=== PATIENT | female | born 1955 | race Caucasian/White ===

== ENCOUNTER → 2024-03-03 13:05 | Outpatient (CLI) | payer MEDICARE, SELFPAY ==
--- NOTE | 2024-03-03 13:06 | DI.MG.S_ITS ---
BILATERAL DIGITAL SCREENING MAMMOGRAM 3D/2D WITH CAD: 03/03/2024 CLINICAL: Routine screening. Comparison is made to exams dated: 04/20/2021 mammogram, 01/24/2020 mammogram, and 09/15/2010 mammogram - [facility]. There are scattered areas of fibroglandular density in both breasts (category b / 25%-50% glandular tissue). Current study was also evaluated with a Computer Aided Detection (CAD) system. No significant masses, calcifications, or other findings are seen in either breast. There has been no significant interval change. IMPRESSION: NEGATIVE There is no mammographic evidence of malignancy. A 1 year screening mammogram is recommended. Based on the Tyrer Cuzick model (a risk assessment model) the patient's lifetime risk is 4.8% and her 10 year risk is 2.4%. According to the ACR, ACS, and NCCN guidelines, an annual breast MRI exam along with mammogram is recommended if the patient's lifetime risk is 20% or greater. This exam was interpreted at Station ID: [id number]. NOTE: For mammograms, a report in lay terms will be sent to the patient. Approximately 15% of breast malignancies will not be visualized mammographically. In the management of a palpable breast mass, a negative mammogram must not discourage biopsy of a clinically suspicious lesion. Electronically Signed By: Nayla kolb/nicolas:03/03/2024 16:06:18 copy to: DILSHAD FLORES letter sent: Normal Exam ACR BI-RADS Category 1: Negative 3341F
[2024-03-03 14:14] LABS: Hemoglobin A1C% w Est Avg Glu 9.8 % (4.0-6.0)
[2024-03-03 14:23] LABS: HEMOLYSIS < 15 (0-50); Iron 93 ug/dL (37-170)
[2024-03-03 14:27] LABS: Add Manual Diff / Slide Review NO; Basophils Absolute Auto 0 /uL (0-100); Basophils Percent Auto 0.6 % (0-2); Eosinophils Absolute Auto 400 /uL (0-450); Eosinophils Percent Auto 5.1 % (2-4); Hematocrit 39.4 % (36-46); Hemoglobin 13.3 g/dL (12.0-16.0); Lymphocytes Absolute Auto 2800 /uL (1100-4500); Mean Corpuscular HGB Conc 33.7 % (30-36); Mean Corpuscular Hemoglobin 28.9 PG (26-34); Mean Corpuscular Volume 85.8 fL (80-100); Monocytes Absolute Auto 400 /uL (0-900); Monocytes Percent Auto 4.9 % (3-14); Neutrophils Absolute Auto 4100 /uL (1500-7000); Neutrophils Percent Auto 53.4 % (50-75); Platelet Count 292 X10^3/uL (150-400); Red Blood Cell Count 4.59 X10^6/uL (4.0-5.2); Red Cell Distribution Width 13.8 % (11.6-14.8); White Blood Cell Count 7.7 X10^3/uL (4.5-11.0)
[2024-03-03 14:29] LABS: Cholesterol 162 mg/dL (140-199); HDL Cholesterol 59 mg/dL (40-60); LDL Cholesterol Calculated 87 mg/dL (<100); Triglycerides 79 mg/dL (35-150)
[2024-03-03 14:34] LABS: Percent Iron Saturation 35 % (15-50); Total Iron Binding Capacity 265 ug/dL (265-497); Transferrin 219 mg/dL (206-381)
[2024-03-04 12:37] LABS: Ferritin 86 ng/mL (11-264)
== END ==
PROVIDERS: PCP Family Medicine; Referring Provider Family Medicine; Visit Provider Family Medicine
DX: Z12.31 Encounter for screening mammogram for malignant neoplasm of breast (principal); D64.9 Anemia, unspecified; R73.9 Hyperglycemia, unspecified; E78.5 Hyperlipidemia, unspecified; R92.323 Mammographic fibroglandular density, bilateral breasts; Z13.220 Encounter for screening for lipoid disorders; E87.8 Other disorders of electrolyte and fluid balance, not elsewhere classified
CPT/HCPCS: 36415; 77063; 77067; 80061; 82728; 83036; 83540; 83550; 85025

== ENCOUNTER → 2024-03-08 14:51 | Outpatient (CLI) | payer MEDICARE, SELFPAY ==
--- NOTE | 2024-03-08 15:20 | DI.RAD.S_ITS ---
PROCEDURE: XR DEXA AXIAL SKELETON INDICATIONS: Screening for Bone Density COMPARISON: None. FINDINGS: Lumbar Spine: Bone mineral density 0.674 g/cm2, T score -3.4. Left Hip: Bone mineral density 0.810 g/cm2, T score -1.1. Left Femoral Neck: Bone mineral density 0.667 g/cm2, T score -1.6. Right Hip: Bone mineral density 0.830 g/cm2, T score -0.9. Right Femoral Neck: Bone mineral density 0.668 g/cm2, T score -1.6. Fracture Risk Calculation (when applicable): Not provided due to osteoporosis. (T score greater or equal to -1.0 to: NORMAL) (T score from -1.1 to -2.4: OSTEOPENIA) (T score less than or equal to -2.5: OSTEOPOROSIS) IMPRESSION: Lumbar spine osteoporosis. Dictated by: José Antonio Mckenzie M.D. on 03/08/2024 at 15:46 Approved by: José Antonio Mckenzie M.D. on 03/08/2024 at 15:47
== END ==
PROVIDERS: PCP Family Medicine; Referring Provider Family Medicine; Visit Provider Family Medicine
DX: R93.7 Abnormal findings on diagnostic imaging of other parts of musculoskeletal system (principal); N95.8 Other specified menopausal and perimenopausal disorders; M81.0 Age-related osteoporosis without current pathological fracture
CPT/HCPCS: 77080

== ENCOUNTER → 2024-04-16 12:56 | Outpatient (CLI) | payer MEDICARE, SELFPAY ==
--- NOTE | 2024-04-16 13:11 | DIAB.MNT ---
Initial Diabetes Medical Nutrition Therapy Assessment Name: Mildred Hope Date: 04/16/24 Time: 110-215p Dx: Type II Diabetes Presents for initial DM visit. New dx. Endorses Fh of Dm with both parents and siblings. Endorses wt loss since dx, at least 15#. Increased physical activity. has had diarrhea with each increase in Metformin, but it has improved each time. Newly dx with osteoporosis and wanting to know how to incorporate with Dm diet. Started Calcium supplements. Endorses some memory deficit. 20 years ago symptoms of dizzy, vision changes, was taken to provider and dx with vertigo. Feels she has some memory deficits since that event. Reports some fatigue. Wants to know how much carb to eat. Social: Reports difficulty with previous job and coworkers making fun of her for her age. No longer at this job. Reports h/o depression. Managing with PCP. Diet Recall: 3p: 2oz cheese 7-9p: veggie, and protein +/- sauce 1230-2p: salad with protein water, unsweet tea or diet coke Reports big reduction in CHO since diagnosis. She is unsure about how much fluids. Anthropometrics: Ht: 63 Wt: 174# reported Physical Activity: Walking with work for [employer]. No recent intentional walks, but plans to do this as weather improves. Bowflex resistance training, 3-4x per week. Self-Monitoring Blood Glucose: FBG checks started yesterday. First reading 143mg/dl. She is unsure of Bg goals. Needs clarity on BG vs HgA1c. Diabetes Medications: Metformin 1000mg ER BID Pertinent Labs: HgA1c: 9.8% 02/2024 Past Medical History: (Last Updated 04/05/24 @ 14:05 by Janeth Maldonado MD) Anhedonia Asthma DM2 (diabetes mellitus, type 2) Healthcare maintenance Osteoporosis Postnasal drip Seasonal allergies Nutrition Rx: Carbohydrates: Meal:30-45g Snack:15-30g Nutrition Diagnosis: - Food and nutrition related knowledge deficit r/t newly dx DM aeb pt report, diet recall and hgA1c >6.5% Intervention: This participant was very receptive. Provided appropriate educational handouts. Discussed the following topics: Completed intake assessment. Discussed barriers to care. Brief pathophysiology of T2DM HgA1c, its correlation to blood glucose numbers, and rationale for goal Importance of self-monitoring, how often, and when to check. Suggested checking at different times to evaluate meals Plate Method, impact of macronutrients on blood sugar, meal timing, carbohydrate counting, pairing macronutrients and spreading out carbohydrates for better blood glucose management Recommended servings for carbohydrates at meals and snacks Heart health nutrition Brainstormed appropriate meal plan based on food preferences Role of physical activity and following provider guidelines for safety Created SMART goals for patient self-care and success. Goals: Try adding 30g CHO to a meal and check BG Check BG 1-2x per day and write down Pair CHO and pro at meals/snacks Follow-up: [facility] PICKENS follow-up in 3-4 weeks. Offered May. She will consider and let me know next visit. Katiuska Bhardwaj RDN, [facility] Certified Diabetes Care and [place] [employer] Operator P: [phone] Thank you for this referral
== END ==
PROVIDERS: PCP Family Medicine; Referring Provider Family Medicine
DX: E11.9 Type 2 diabetes mellitus without complications (principal); M81.0 Age-related osteoporosis without current pathological fracture; Z79.84 Long term (current) use of oral hypoglycemic drugs; Z71.3 Dietary counseling and surveillance
CPT/HCPCS: 97802

== ENCOUNTER → 2024-05-18 15:56 | Outpatient (CLI) | payer MEDICARE, SELFPAY ==
--- NOTE | 2024-06-03 14:37 | DIAB.MNTFU ---
Follow-up Diabetes Medical Nutrition Therapy Assessment Name: Mildred Hope Date: 05/18/24 Time: 415-5p Dx: Type II Diabetes Mildred presents for follow-up visit. Reports recent illness with nausea, diarrhea, fatigue. Feels this may have been r/t new osteoporosis medication. States she feels she has made very little changes due to illness over the past month. Feeling better now. Avoiding most CHO per report. Has questions about vitamin d dosing. Reduced CHO portions when eating out by eating half. States there is no rf on her Metformin dose. Encouraged her to contact PCP. Has f/u in May per report. no recent eye appt Diet Recall: 3p: leftobers OR toast with PB OR yogurt +/- cheese 7-9p: tuna noodles with veg OR steak salad and potato OR pizza x 1-2 slices and salad 1230-2p: salad with protein water, unsweet tea or diet coke Anthropometrics: Ht: 63 Wt: 174# reported Physical Activity: None since illness. Last visit: Walking with work for [employer]. No recent intentional walks, but plans to do this as weather improves. Bowflex resistance training, 3-4x per week. Self-Monitoring Blood Glucose: FBG checks and few pc readings. Overall, most in goal. FBG recently: 123, 123, 121, 121, 145, 118, 111 mg/dl. One pc reading on 05/04 of 114mg/dl. Diabetes Medications: Metformin 1000mg ER BID Pertinent Labs: HgA1c: 9.8% 02/2024 Past Medical History: (Last Updated 04/05/24 @ 14:05 by Janeth Maldonado MD) Anhedonia Asthma DM2 (diabetes mellitus, type 2) Healthcare maintenance Osteoporosis Postnasal drip Seasonal allergies Nutrition Rx: Carbohydrates: Meal:30-45g Snack:15-30g Nutrition Diagnosis: - Food and nutrition related knowledge deficit r/t newly dx DM aeb pt report, diet recall and hgA1c >6.5%- improved -Physical inactivity r/t illness aeb pt report - new - Inconsistent energy intake r/t nutrition knowledge deficit aeb diet recall- new Intervention: This participant was very receptive. Provided appropriate educational handouts. Discussed the following topics: Completed intake assessment. Discussed barriers to care. Review of nutrition recs, portions, pairing, and meal timing Physical activity barriers and goals Complication risk reduction strategies: eye care, dental, feet RUBBER MIXER for vitamin D and upper limits Created SMART goals for patient self-care and success. Goals: Try adding 30g CHO to a meal and check BG- met Check BG 1-2x per day and write down- met Pair CHO and pro at meals/snacks- met Restart bowflex 3-4x per week - new Walking 1x per week- new Eat 3x per day- new make eye appt- new Follow-up: [facility] PICKENS follow-up in 3-4 weeks. Prefers to stay 1:1 at this time due to worries about falling asleep in class. Katiuska Bhardwaj RDN, [facility] Certified Diabetes Care and Quality Improvement Consultant P: [phone] Thank you for this referral
== END ==
PROVIDERS: PCP Family Medicine; Referring Provider Family Medicine
DX: E11.9 Type 2 diabetes mellitus without complications (principal); Z71.3 Dietary counseling and surveillance; Z79.84 Long term (current) use of oral hypoglycemic drugs
CPT/HCPCS: 97803

== ENCOUNTER → 2024-06-09 17:00 | Outpatient (CLI) | payer MEDICARE, SELFPAY ==
[2024-06-09 19:26] LABS: Alanine Aminotransferase 17 IU/L (<35); Albumin 4.3 g/dL (3.5-5.0); Albumin Globulin Ratio 1.7 (1.0-2.8); Alkaline Phosphatase 84 U/L (38-126); Aspartate Aminotransferase 21 IU/L (14-36); BUN Creatinine Ratio 27.5 (6-22); Bilirubin Total 0.9 mg/dL (0.2-1.3); Blood Urea Nitrogen 22 mg/dL (7-17); Calcium 9.3 mg/dL (8.4-10.2); Carbon Dioxide 22 mmol/L (22-32); Chloride 108 mmol/L (98-107); Estimated Glomerular Filt Rate > 60 mL/min (>60); Globulin 2.5 g/dL (1.7-4.1); Glucose 104 mg/dL (80-110); HEMOLYSIS < 15 (0-50); Potassium 4.4 mmol/L (3.4-5.1); Sodium 140 mmol/L (137-145); Total Protein 6.8 g/dL (6.3-8.2)
[2024-06-09 19:27] LABS: Hemoglobin A1C% w Est Avg Glu 6.2 % (4.0-6.0)
[2024-06-09 19:50] LABS: Creatinine Urine Random 235.11 mg/dL
[2024-06-09 19:58] LABS: TSH w/ Reflex to FT4 2.48 uIU/mL (0.47-4.68)
[2024-06-09 20:30] LABS: Folate 6.8 ng/mL (2.76-20.0); Vitamin B12 237 pg/mL (239-931)
[2024-06-11 02:41] LABS: Zinc 62 ug/dL (44-115)
== END ==
PROVIDERS: PCP Family Medicine; Referring Provider Family Medicine; Visit Provider Family Medicine
DX: E11.9 Type 2 diabetes mellitus without complications (principal); L60.3 Nail dystrophy; L60.9 Nail disorder, unspecified
CPT/HCPCS: 36415; 80053; 82043; 82570; 82607; 82746; 83036; 84443; 84630

== ENCOUNTER → 2024-07-13 14:54 | Outpatient (CLI) | payer MEDICARE, SELFPAY ==
[2024-07-15 11:12] LABS: Fecal Immunochemical Test Positive (Negative)
--- NOTE | 2024-08-26 10:02 | DIAB.MNTFU ---
Follow-up Diabetes Medical Nutrition Therapy Assessment Name: Mildred Hope Date: 07/13/24 Time: 305-330p Dx: Type II Diabetes Mildred presents for follow-up visit. Reports recent illness with nausea, diarrhea, fatigue may have been from taking too much Metformin. Endorses taking 2000mg BID due to reading rx label incorrectly. Endorses feeling much better since d/c of excessive dosing. States she has been eating a lot of leftovers recently from a constitution party: potatoes, pineapple cake, pie, lumpia. Recent HgA1c with great improvement down to 6.2% over due for eye exam Endorses ridges and scooping of nail beds, visible in visit. Slightly low B12 from provider labs. States she has had this issue since last years ago. No apparent anemias in lab results. Diet Recall: 3p: leftobers OR teriyaki beef/chx with over 1c potatoes, veggies 7-9p: frozen pizza x 1 slice with salad 1-2a: eggs and ham cheese, toast water, unsweet tea or diet coke Anthropometrics: Ht: 63 Wt: 166# reported Physical Activity: some walking, bowflex a few times since last visit Self-Monitoring Blood Glucose: FBG checks and no recent pc readings. Overall, most in goal. FBG recently: 124, 118, 119, 120, 143, 133, 146 mg/dl. FBG last visit: 123, 123, 121, 121, 145, 118, 111 mg/dl. One pc reading on 05/04 of 114mg/dl. Diabetes Medications: Metformin 1000mg ER BID Pertinent Labs: HgA1c: 9.8% 02/2024 6.2% 05/2024 Past Medical History: (Last Updated 04/05/24 @ 14:05 by Janeth Maldonado MD) Anhedonia Asthma DM2 (diabetes mellitus, type 2) Healthcare maintenance Osteoporosis Postnasal drip Seasonal allergies Nutrition Rx: Carbohydrates: Meal:30-45g Snack:15-30g Nutrition Diagnosis: -Physical inactivity r/t illness aeb pt report - improved - Inconsistent energy intake r/t nutrition knowledge deficit aeb diet recall- in progress - Predicted excessive CHO intake r/t recent constitution party leftovers aeb pt report and diet recall- new Intervention: This participant was very receptive. Provided appropriate educational handouts. Discussed the following topics: Recs for CHO portions Reducing risks of DM complications Vitamin deficiencies potential for symptoms of nail changes Meal timing Physical activity progress and goals Created SMART goals for patient self-care and success. Goals: Restart bowflex 3-4x per week - improved/in progress Walking 1x per week- not met Eat 3x per day- met make eye appt- in progress Keep CHO portions to 1c- new Consider B vitamin complex- new Restart bowflex- new Keep dessert away from other carb portions- new Follow-up: [facility] PICKENS follow-up in 2-3 weeks, DSME classes and 1:1 visit. Katiuska Bhardwaj RDN, [facility] Certified Diabetes Care and Supervisor Rolling Room P: [phone] Thank you for this referral
== END ==
PROVIDERS: PCP Family Medicine; Referring Provider Family Medicine
DX: Z12.11 Encounter for screening for malignant neoplasm of colon (principal)
CPT/HCPCS: 82274; 97803

== ENCOUNTER → 2024-08-10 09:20 | Outpatient (CLI) | payer MEDICARE, SELFPAY ==
--- NOTE | 2024-08-26 11:31 | DIAB.FU ---
Diabetes Education Class Series: Diabetes Lifestyle Change and Ongoing Support Name: Mildred Hope Date: 08/10/24 Time: 930-11a Dx: Type II Diabetes Mildred presents for class 3. Plans to attend class 1 and 2 next round in September. Reports she is thinking about food differently now, and prioritizing healthful foods. States she has been losing wt intentionally with success. States she does feel like she needs new recipes and quick and easy ideas. Class topics covered: ? Discuss the difference between physical activity and exercise ? Determine physical activity benefits and impact on diabetes ? Review physical activity recommendations and safety ? Discuss emergency preparedness ? Discuss diabetes and emotions (diabetes burnout/distress) ? Review and practice stress management techniques ? Review support groups and community resources ? Discuss the role of family support in diabetes care ? What is going well? Challenges of diabetes? Follow-up: 1:1 visit follow-up Katiuska Bhardwaj RDN, [facility] Certified Diabetes Care and Monitoring Specialist P: [phone] Thank you for this referral
== END ==
PROVIDERS: PCP Family Medicine; Referring Provider Family Medicine
DX: E11.9 Type 2 diabetes mellitus without complications (principal); Z71.3 Dietary counseling and surveillance; Z71.89 Other specified counseling
CPT/HCPCS: G0109

== ENCOUNTER 2024-08-12 09:18 | Day surgery (SDC) | payer MEDICARE, SELFPAY ==
--- NOTE | 2024-08-12 | PATH_ITS ---
[facility] Accession Number: [id number] No. of containers..02 Tissue . 01 Material submitted: . PART A: colon - ASCENDING POLYP PART B: rectum - RECTAL POLYP . 01 Diagnosis: Part A: ASCENDING POLYP: Tubular adenoma. . Part B: RECTAL POLYP: Tubular adenoma. [facility] 08/17/2024 1223 Local . 01 Electronically signed: . Josh Moody MD, Pathologist NPI- [id number] . 01 Gross description: . A. Received in formalin with two patient identifiers and ascending polyp, is a single armenta soft tissue fragment, 0.6 cm in greatest dimension, submitted in A1. . B. Received in formalin with two patient identifiers and rectal polyp, is a single armenta soft tissue fragment, 1.1 x 0.9 x 0.9 cm, inked blue, trisected, and submitted entirely in B1. ([id number]) /MRV 08/17/2024 1223 Local . 01 Pathologist provided ICD-10: D12.2, D12.8 . 01 CPT . 885695, 388462 Specimen Comment: A courtesy copy of this report has been sent to [phone] Performed at: [address] [address], [place], [place] [id number] MD Josh Moody MD Phone: [phone]
[2024-08-12] MEDS: LACTATED RINGERS 1,000 ML 42 ML IV (09:33)
[2024-08-12 09:42] VITALS: BP 130/77; PULSE 70; RESP 16; TEMP 36.6; O2SAT 98
--- NOTE | 2024-08-12 09:58 | PM.HP.1 ---
History of Present Illness History of Present Illness Date Patient Seen: 08/12/24 Time Patient Seen: 09:58 Chief complaint: Colonoscopy Narrative: Mildred is a 68-year-old woman who is here for a colonoscopy. She has had 2 before but she has not sure when or if polyps were removed. No family history of colon cancer. ON LICENSE OF [facility] Medical History (Updated 08/12/24 @ 09:59 by Jaiden Ponce MD) Positive FIT (fecal immunochemical test) Osteoporosis DM2 (diabetes mellitus, type 2) Healthcare maintenance Anhedonia Seasonal allergies Postnasal drip Asthma Social History Smoking Status: Never smoker second hand exposure: No alcohol intake: current substance use type: does not use Meds Home Medications and Allergies Home Medications Medication Instructions Recorded Confirmed Type fluticasone propionate 50 1 spray intranasal DAILY #16 grams 12/12/23 08/12/24 Rx mcg/actuation nasal spray,suspension (Allergy Relief (fluticasone)) loratadine 10 mg tablet (Allergy 10 mg PO DAILY 12/12/23 08/12/24 History Relief (loratadine)) albuterol sulfate 90 mcg/actuation 2 puff inhalation Q4-6H PRN 03/10/24 08/12/24 Rx aerosol inhaler shortness of breath or wheezing #8.5 grams fluticasone 250 mcg-salmeterol 50 1 inh inhalation Q12H #180 03/10/24 08/12/24 Rx mcg/dose blistr powdr for inhalation (Wixela Inhub) sharps container #1 03/10/24 04/05/24 Rx alendronate 70 mg tablet (Fosamax) 70 mg PO QWEEK #20 tabs 04/05/24 08/12/24 Rx glucometer #1 04/05/24 Rx glucose test strips #400 04/05/24 Rx lancet #400 04/05/24 Rx escitalopram oxalate 10 mg tablet 10 mg PO DAILY #90 tabs 05/24/24 08/12/24 Rx ondansetron 4 mg disintegrating 4 mg PO Q8H PRN nausea and 06/09/24 08/12/24 Rx tablet vomiting #30 tabs metformin 1,000 mg tablet See Rx Instructions .Route 06/29/24 08/12/24 Rx .COMPLEX #90 tabs Allergies Allergy/AdvReac Type Severity Reaction Status Date / Time No Known Drug Allergies Allergy Verified 08/12/24 09:41 Exam Vital Signs (past 8 hours): - 08/12/24 09:42 Temperature 97.9 F Pulse Rate 70 Respiratory Rate 16 Blood Pressure 130/77 Pulse Oximetry 98 Oxygen Delivery Method Room Air Oxygen Delivery Method Room Air Const General: No acute distress Resp Effort & Inspection: normal respiratory effort Assessment & Plan Assessment and plan (1) Colon cancer screening: Status: Acute Plan Mildred is a 68-year-old woman here for colonoscopy. We reviewed the risks and benefits and she would like to proceed. Time-Based Coding :: [TOTAL MINUTES] spent with patient and on the chart (including review of chart, obtaining history, exam, reviewing outside data, placing orders, documenting exam and treatment plan, and counseling patient) on [DATE].
[2024-08-12 10:49] VITALS: BP 118/55; PULSE 72; RESP 19; TEMP 36.8; O2SAT 94
--- NOTE | 2024-08-12 10:51 | PM.OP.COLON ---
Operative Date/Time/Diagnoses Date of procedure: 08/12/24 Time of procedure: 10:51 Pre-op diagnosis: Positive fit test Post-op diagnosis: same Procedure & Clinicians Study performed: Colonoscopy Same procedure as scheduled: Yes Surgeon: Jaiden Ponce Procedure Notes Procedure in detail: Surgeon: Jaiden Ponce MD Anesthesia: Chanelle Hess CRNA Procedure: The patient was brought to the endoscopy suite, placed in left lateral decubitus position. The patient was connected to monitoring devices. A time-out was performed. Sedation was administered. Once the patient was adequately sedated, a digital rectal exam was performed and was normal. The scope was then inserted and advanced to the cecum where the appendiceal orifice was identified and photographed. The scope was then slowly withdrawn over greater than 6 minutes. The mucosa was thoroughly inspected. There was a 7 mm polyp in the ascending colon removed with a cold snare. There was a 1.2 cm polyp in the mid rectum removed with a cold snare. A single hemoclip was applied to the mucosal wound with complete hemostasis achieved. The scope was retroflexed in the rectum. No other abnormalities were identified. The scope was straightened and removed. The patient was awakened and brought to recovery. Scope withdrawal time: 15 minutes Sedation time: 20 minutes EBL: 5 mL Findings: 7 mm ascending colon polyp and 1.2 cm rectal polyp Post-procedure Disposition: PACU
[2024-08-12 10:54] VITALS: BP 118/61; PULSE 66; RESP 13; O2SAT 97
[2024-08-12 11:00] VITALS: BP 119/66; PULSE 59; RESP 10; TEMP 36.9; O2SAT 97
== END 2024-08-12 11:16 | disposition home or self-care (01) ==
PROVIDERS: PCP Family Medicine; Referring Provider Surgery; Visit Provider Surgery
PROC: 0DJD8ZZ Inspection of Lower Intestinal Tract, Via Natural or Artificial Opening Endoscopic (ICD-10-PCS; CPT 45378; principal; 2024-08-12 10:00)
DX: Z12.11 Encounter for screening for malignant neoplasm of colon (principal); R19.5 Other fecal abnormalities; D12.2 Benign neoplasm of ascending colon; D12.8 Benign neoplasm of rectum
CPT/HCPCS: 45385; J2704

== ENCOUNTER → 2024-08-25 15:07 | Outpatient (CLI) | payer MEDICARE, SELFPAY ==
--- NOTE | 2024-09-16 11:44 | DIAB.FU ---
Follow-up Diabetes Education Assessment Name: Mildred Hope Date: 08/25/24 Time: 093-250q Dx: Type II Diabetes Mildred presents for follow-up visit. Today she reports feeling depressed lately. States she feels she is putting things off, feeling less iris about things she normally would, and feels this may be impacting her DM care as well (food choices and activity). Increased popcorn intake lately per report. Otherwise, balancing CHO intake. Would like to attend next two September classes. Anthropometrics: Ht: 63 Wt: 166# reported last visit Physical Activity: None lately due to colonoscopy per report. Self-Monitoring Blood Glucose: FBG checks recently improved with all in goal. FBG recently: 111, 115, 118, 104, 122, 115, 105 mg/dl. FBG last visit: 124, 118, 119, 120, 143, 133, 146 mg/dl. Diabetes Medications: Metformin 1000mg ER BID Pertinent Labs: HgA1c: 9.8% 02/2024 6.2% 05/2024 Past Medical History: (Last Updated 04/05/24 @ 14:05 by Janeth Maldonado MD) Anhedonia Asthma DM2 (diabetes mellitus, type 2) Healthcare maintenance Osteoporosis Postnasal drip Seasonal allergies Intervention: This participant was very receptive. Provided appropriate educational handouts. Discussed the following topics: Impact of depression on health and self care Improving BG results and trends Physical activity Scheduling PCP appt for discussion about depression Carb portions and recs Created SMART goals for patient self-care and success. Goals: make eye appt- in progress Keep CHO portions to 1c- met Consider B vitamin complex- not met Restart bowflex- on hold Keep dessert away from other carb portions- met make PCP appt for depression- new Follow-up: [facility] PICKENS follow-up in September for classes and 1:1 in October. Katiuska Bhardwaj RDN, [facility] Certified Diabetes Care and Hotel Recreational Facilities Manager P: [phone] Thank you for this referral
== END ==
PROVIDERS: PCP Family Medicine; Referring Provider Family Medicine
DX: E11.9 Type 2 diabetes mellitus without complications (principal); Z79.84 Long term (current) use of oral hypoglycemic drugs; Z71.3 Dietary counseling and surveillance
CPT/HCPCS: G0108

== ENCOUNTER → 2024-11-03 15:22 | Outpatient (CLI) | payer MEDICARE, SELFPAY ==
--- NOTE | 2024-12-22 11:44 | DIAB.FU ---
Follow-up Diabetes Education Assessment Name: Mildred Hope Date: 11/03/24 Time: 330-4p Dx: Type II Diabetes Mildred presents for follow-up visit. Reports recent increase in depression management meds, which seems to be helping. States she is unclear on what foods impact her BG the most. Feel like I know noting about diabetes Open to DSME classes and has not attended 2 of 3 in the past. Has questions regarding BG results, when a coma would occur. States she needs to make an appt for sleep study. Physical Activity: Some activity with walking for ADLs. Depression has seemed to be a factor in the past. Self-Monitoring Blood Glucose: FBG checks running 91-130mg/dl, all in goal this past week. Reports one reading of 191mg/dl since last visit that she was very worried about and unclear what that meant or what to do. Diabetes Medications: Metformin 1000mg ER BID Pertinent Labs: HgA1c: 9.8% 02/2024 6.2% 05/2024 Past Medical History: (Last Updated 04/05/24 @ 14:05 by Janeth Maldonado MD) Anhedonia Asthma DM2 (diabetes mellitus, type 2) Healthcare maintenance Osteoporosis Postnasal drip Seasonal allergies Intervention: This participant was very receptive. Provided appropriate educational handouts. Discussed the following topics: Impact of depression on health and self care BG trends, goals, s/s of high and lows, treatment for each FBG variables What pc readings tell us Created SMART goals for patient self-care and success. Goals: make PCP appt for depression- met Take class 1 and 2 for Dm education- new Try checking a few pc readings - new make appt for sleep study- new Follow-up: [facility] PICKENS follow-up in Nov for DM ed classes Katiuska Bhardwaj RDN, [facility] Certified Diabetes Care and Cell Support Operator P: [phone] Thank you for this referral
== END ==
PROVIDERS: PCP Family Medicine; Referring Provider Family Medicine
DX: E11.9 Type 2 diabetes mellitus without complications (principal); Z71.3 Dietary counseling and surveillance; Z79.84 Long term (current) use of oral hypoglycemic drugs
CPT/HCPCS: G0108

== ENCOUNTER → 2024-11-30 09:24 | Outpatient (CLI) | payer MEDICARE, SELFPAY ==
--- NOTE | 2024-12-03 17:42 | DIAB.FU ---
Diabetes Education Class Series: Diabetes Physiology and Medications Name: Mildred Hope Date: 11/30/23 Time: 9:35-11:40a Mildred presents for class 1 of 3. She has already attended class 3. Reports making nutrition changes and subbing lower CHO options. Class topics covered: ? Diabetes pathophysiology ? Discuss different types of diabetes ? Review criteria for diagnosing diabetes ? Review HgA1c measurement and associated blood sugars ? Review blood sugar monitoring safety, technique, and goals ? Discuss ways to reduce complications associated with diabetes, includes microvascular and macrovascular complications ? Review diabetes medications types, action, and side effects ? Health care visits recommended for people with T2DM ? Immunization recommended for people with T2DM ? SMART goals review Goal Set: Walk 3x per week Follow-up: Diabetes Lifestyle and Ongoing Support Class next week Katiuska Bhardwaj RDN, [facility] Certified Diabetes Care and Erp Specialist P: [phone] Thank you for this referral
== END ==
PROVIDERS: PCP Family Medicine; Referring Provider Family Medicine
DX: E11.9 Type 2 diabetes mellitus without complications (principal); Z71.3 Dietary counseling and surveillance
CPT/HCPCS: G0109

== ENCOUNTER → 2024-12-07 09:20 | Outpatient (CLI) | payer MEDICARE, SELFPAY ==
--- NOTE | 2024-12-22 11:08 | DIAB.FU ---
Diabetes Education Class Series: Diabetes Physiology and Medications Name: Mildred Hope Date: 12/07/2024 Time: 930-11a Mildred presents for class 2 of 3. She has attended class 3 before, so this will be her last class this month. States she has been walking more and even used her bowflex. Class topics covered: ? Diabetes pathophysiology ? Discuss different types of diabetes ? Review criteria for diagnosing diabetes ? Review HgA1c measurement and associated blood sugars ? Review blood sugar monitoring safety, technique, and goals ? Discuss ways to reduce complications associated with diabetes, includes microvascular and macrovascular complications ? Review diabetes medications types, action, and side effects ? Health care visits recommended for people with T2DM ? Immunization recommended for people with T2DM ? SMART goals review Follow-up: 1:1 follow-up in 3-4 weeks. Katiuska Bhardwaj RDN, [facility] Certified Diabetes Care and [employer] Machine Tender P: [phone] Thank you for this referral
== END ==
PROVIDERS: PCP Family Medicine; Referring Provider Family Medicine
DX: E11.9 Type 2 diabetes mellitus without complications (principal); Z71.3 Dietary counseling and surveillance; Z79.84 Long term (current) use of oral hypoglycemic drugs
CPT/HCPCS: G0109

== ENCOUNTER → 2024-12-29 15:24 | Outpatient (CLI) | payer MEDICARE, SELFPAY ==
--- NOTE | 2025-02-17 17:10 | DIAB.MNTFU ---
Follow-up Diabetes Medical Nutrition Therapy Assessment Name: Mildred Hope Date: 12/29/24 Time: 335-430p Dx: Type II Diabetes Mildred presents for follow-up visit. Has questions about al dente past and BG. Reports snacking on candy lately. Has not completed sleep study, states she needs a new referral. Endorses depression is a bit better. Working with PCP on this. Checked for eye appt coverage and now just needs to make an appt. Has questions about low CHO diets like keto. No PCP appt scheduled. Diet Recall; meal 1: veggies, ham and cheese sauce, orange meal 2: protein and 2 small potato cakes OR half portion of frozen dulce Sn: candy, cookies, ice cream Endorses guilt with throwing food away States she tries to eat all leftovers, including sweets, from parties. Use to work at [employer] and this impacts her outlook on food per report. not sleeping well In bed 10-12 hours sometimes Eats at least 2x per day Wants to see RD in 2-3 months. Physical Activity: using blowflex and walking, which seems to help with sleep. Self-Monitoring Blood Glucose: FBG checks running 106-128mg/dl, all in goal this past week. One after dinner/dessert reading of 145mg/dl. Diabetes Medications: Metformin 1000mg ER BID Pertinent Labs: HgA1c: 9.8% 02/2024 6.2% 05/2024 Past Medical History: (Last Updated 04/05/24 @ 14:05 by Janeth Maldonado MD) Anhedonia Asthma DM2 (diabetes mellitus, type 2) Healthcare maintenance Osteoporosis Postnasal drip Seasonal allergies Nutrition Rx: Carbohydrates: Meal:30-45g Snack:15-30g Nutrition Diagnosis: -Physical inactivity r/t illness aeb pt report - improved - Inconsistent energy intake r/t nutrition knowledge deficit aeb diet recall- improved/in progress - Predicted excessive CHO intake r/t recent libertarian leftovers aeb pt report and diet recall- in progress Intervention: This participant was very receptive. Provided appropriate educational handouts. Discussed the following topics: Carb portions Physical activity Impact of depression on Dm care Eye appt and reducing Dm complication risk Food relationship and guilt Low CHO diets and moderation BG results and trends Created SMART goals for patient self-care and success. Goals: Take class 1 and 2 for Dm education- met Try checking a few pc readings - met make appt for sleep study- not met Make PCP appt- new Make eye appt- new Be mindful of portions of sweets- new Follow-up: [facility] follow-up in 2 months per pt req. Katiuska Bhardwaj, MADI, CELIO Certified Diabetes Care and Culinary Specialist P: [phone] Thank you for this referral
== END ==
PROVIDERS: PCP Family Medicine; Referring Provider Family Medicine
DX: E11.9 Type 2 diabetes mellitus without complications (principal); Z79.84 Long term (current) use of oral hypoglycemic drugs; Z71.3 Dietary counseling and surveillance; Z71.89 Other specified counseling
CPT/HCPCS: 97803

== ENCOUNTER → 2025-03-09 15:34 | Outpatient (CLI) | payer MEDICARE, SELFPAY ==
--- NOTE | 2025-03-09 15:42 | DIAB.FU ---
Follow-up Diabetes Education Assessment Name: Milrded Hope Date: 03/09/25 Time: 345-420p Dx: Type II Diabetes Mildred presents for follow-up visit. Reports high CHO meal yesterday as a treat meal that resulted in elevated BG overnight and FBG 153mg/dl. Usually eats 2+ times per day. If sleep is an issue and she is no sleeping, may only eat once per day d/t feeling so tired she does not feel hungry. Aiming for half plate for veggie. Eating veggies. Has protein at most meals. Some meals low or no carbs. Much reduced sweets since last visit. Question about rice starch content when stored overnight. Wants to discuss depression with PCP. Has not made an appt. Depression seems to impede Dm care, ie reduced physical activity, difficulty with sleep, changes in eating patterns. Physical Activity: Walking. Trying to move more and using fitbit as a guide. Steps are generally [id number] per day. More gardening. She feels her exercise is something she would like to work on. Was walking or using bowflex more in Sep, and felt this helped with BG. Self-Monitoring Blood Glucose: FBG checks running 110-145mg/dl, higher than last visit but most in goal. Diabetes Medications: Metformin 1000mg ER BID Pertinent Labs: HgA1c: 9.8% 02/2024 6.2% 05/2024 Past Medical History: (Last Updated 04/05/24 @ 14:05 by Janeth Maldonado MD) Anhedonia Asthma DM2 (diabetes mellitus, type 2) Healthcare maintenance Osteoporosis Postnasal drip Seasonal allergies Intervention: This participant was very receptive. Provided appropriate educational handouts. Discussed the following topics: Depression and diabetes Starches in rice and impact on BG Physical activity Reducing Dm complication risk Created SMART goals for patient self-care and success. Goals: make appt for sleep study- not met Make PCP appt- not met Make eye appt- not met Be mindful of portions of sweets- met Aim for min 3000 steps per day- new Make PCP appt this week- new Restart your bowflex- new Follow-up: [facility] follow-up in 2-3 months per pt request. Katiuska Bhardwaj RDN, CELIO Certified Diabetes Care and Greaser Operator P: [phone] Thank you for this referral
== END ==
PROVIDERS: PCP Family Medicine; Referring Provider Family Medicine
DX: E11.65 Type 2 diabetes mellitus with hyperglycemia (principal); Z79.84 Long term (current) use of oral hypoglycemic drugs; Z71.3 Dietary counseling and surveillance
CPT/HCPCS: G0108

== ENCOUNTER → 2025-03-23 15:58 | Outpatient (CLI) | payer MEDICARE, SELFPAY ==
--- NOTE | 2025-03-23 15:59 | DI.MG.S_ITS ---
MM screening mammo BI: 03/23/2025. BI-RADS: 2 CLINICAL: 69-year old female for bilateral screening mammogram. Tyrer-Cuzick lifetime risk of 3.5%. No personal or first-degree family history of breast cancer. PRIOR EXAMS 03/03/2024, 04/20/2021, 01/24/2020. MAMMOGRAPHY TECHNIQUE: 2D and 3D (tomosynthesis) digital mammographic views obtained, with additional images as needed for full coverage. Current study was also evaluated with a Computer Aided Detection (CAD) system. DENSITY B. There are scattered areas of fibroglandular density. MAMMOGRAPHY FINDINGS Right: Benign-appearing asymmetry noted on the right. There are no suspicious masses, calcifications, or other findings in the breast. No significant change from comparison. Left: No suspicious mass, asymmetry, microcalcification, or other abnormality seen. No significant change from comparison. IMPRESSION: Right * No evidence of malignancy with benign findings. Left * No evidence of malignancy. RECOMMENDATIONS Bilateral * Annual screening mammography. OVERALL ASSESSMENT CATEGORY BI-RADS-2: Benign. The [employer] recommends annual screening mammography beginning at age 40 for women with average risk of breast cancer. ELECTRONICALLY SIGNED: Radha Menendez M.D. on 03/24/2025 at 04:13:19 PM PT Interpreting Station ID: [id number]
== END ==
PROVIDERS: PCP Family Medicine; Referring Provider Family Medicine; Visit Provider Family Medicine
DX: Z12.31 Encounter for screening mammogram for malignant neoplasm of breast (principal)
CPT/HCPCS: 77063; 77067

== ENCOUNTER → 2025-09-27 15:24 | Outpatient (CLI) | payer MEDICARE, SELFPAY ==
--- NOTE | 2025-11-03 17:12 | DIAB.FU ---
Follow-up Diabetes Education Assessment Name: Mildred Hope Date: 10/07/25 Time: 811-974p Dx: Type II Diabetes Mildred presents for follow-up visit. UTD eyes, endorses cataracts Checking feet daily, tend to be dry Trying to increase physical activity Eating 2-3 x per day. Limits fruit due to CHO. Sleeping better over the last week. Eating overall more balanced per report. Avoiding candy. Notices when sleep is disturbed, she is more likely to eat candy and chips/dip Physical Activity: Aiming for >3000 steps per day. No bowflex use lately. Trying to follow her watch alerts for walking more. Some days up to 8000 steps per day. Self-Monitoring Blood Glucose: FBG checks: 93, 117, 121, 101, 126, 118, 148(ice cream night before). Overall BG mostly in goal. Diabetes Medications: Metformin 1000mg ER BID Pertinent Labs: HgA1c: 9.8% 02/2024 6.2% 05/2024 5.6% 04/2025 Past Medical History: (Last Updated 04/05/24 @ 14:05 by Janeth Maldonado MD) Anhedonia Asthma DM2 (diabetes mellitus, type 2) Healthcare maintenance Osteoporosis Postnasal drip Seasonal allergies Intervention: This participant was very receptive. Provided appropriate educational handouts. Discussed the following topics: Discussed physical activity strategies and goals Reviewed foot care rec for DM care Encouraged fruit intake in moderation. Discussed affordable and easy to store options. Reviewed strategies for adding more veggies Created SMART goals for patient self-care and success. Goals: Try cottage cheese with berries- in progress Restart bowflex safely- not met Lotion feet- new Add fruit 1x per day- new make half plate veggies- new Follow-up: [facility] follow-up in 3-4 months per pt req or prn Katiuska Bhardwaj RDN, CELIO Certified Diabetes Care and Bindery Assistant P: [phone] Thank you for this referral
== END ==
LOC: DIET 15:24
PROVIDERS: PCP Family Medicine; Referring Provider Family Medicine
DX: E11.9 Type 2 diabetes mellitus without complications (principal); Z71.3 Dietary counseling and surveillance; Z79.84 Long term (current) use of oral hypoglycemic drugs
CPT/HCPCS: G0108